=== PATIENT | female | born 1965 | race Caucasian/White ===

== ENCOUNTER 2019-08-07 23:29 | Emergency (ER) | payer OTHER ==
[~2019-08-07] VITALS: Ht 160 cm; Wt 59.0 kg
[~2019-08-07 23:29] MED LIST: AMYLIPPROE; CHLO10; CHLO10 PO; CHLO25; DOCU100 PO; FENTANYL PATCH; HYDACE7.5; HYDMOR2; HYDMOR2 PO; HYDR1TAB94 PO; IBUP800 PO; INSULANPEN SQ; METO50; OMEP20ER; ONDA8ODT MM; OXYACE5T PO; POTCHL20ER PO; PROC10 PO; PROM25 PO; PROM25S; RANI150; RXOXYACE PO; [UNRECOGNIZED DRUG - OTHER]; [UNRECOGNIZED DRUG - REMARK]
[2019-08-08 00:06] LABS: Source, Urine Clean Catch
[2019-08-08 00:08] LABS: Bilirubin, Urine Neg (Neg); Blood, Urine 1+ (Neg); Glucose Qualitative, Urine 4+ (Neg); Ketones, Urine Neg (Neg); Leukocyte Esterase, Urine 1+ (Neg); Nitrite, Urine Neg (Neg); Protein, Urine Neg (Neg); Specific Gravity, Urine 1.015 (1.003-1.022); Urobilinogen, Urine NORM (Normal)
[2019-08-08 00:10] LABS: Appearance, Urine Clear (Clear); Color, Urine Yellow (P-Yellow)
[2019-08-08 00:14] LABS: Bacteria Few /hpf; Squamous Epithelial Cells Few /hpf (Few)
[2019-08-08 00:46] LABS: BASOPHILS ABSOLUTE AUTO 0.06 K/mm3 (0.00-0.23); BASOPHILS PERCENT AUTO 0 % (0-2); EOSINOPHILS PERCENT AUTO 1 % (0-6); Hematocrit 44.2 % (33.0-51.0); Hemoglobin 15.2 g/dL (11.5-16.0); IMMATURE GRAN ABSOLUTE AUTO 0.05 K/mm3 (0.00-0.10); IMMATURE GRAN PERCENT AUTO 0 % (0-1); LYMPHOCYTES ABSOLUTE AUTO 2.22 K/mm3 (0.84-5.20); LYMPHOCYTES PERCENT AUTO 15 % (21-46); MONOCYTES PERCENT AUTO 5 % (4-13); Mean Corpuscular HGB 29.2 pg (26.0-34.0); Mean Corpuscular HGB Conc 34.4 g/dL (31.5-36.5); Mean Corpuscular Volume 85 fL (80-100); Mean Platelet Volume 10.2 fL (9.1-12.4); NEUTROPHILS ABSOLUTE AUTO 11.76 K/mm3 (1.96-9.15); NEUTROPHILS PERCENT AUTO 79 % (41-73); Platelet Count 303 K/mm3 (150-400); RDW Coefficient Variation 12.3 % (11.7-14.2); RDW Standard Deviation 37.6 fL (35.1-46.3); Red Blood Cell Count 5.21 M/mm3 (3.80-5.20); White Blood Cell Count 14.89 K/mm3 (4.00-11.30)
[2019-08-08 01:04] LABS: Alanine Aminotransfer (ALT/SGP 65 U/L (12-78); Albumin, Blood 3.7 g/dL (3.4-5.0); Albumin/Globulin Ratio 0.9 (0.8-1.8); Alk Phos 148 U/L (50-136); Anion Gap 13 mmol/L (6-16); Aspartate Aminotrans (AST/SGOT 31 U/L (12-37); Bilirubin, Total 0.4 mg/dL (0.1-1.0); Blood Urea Nitrogen 14 mg/dL (8-24); Bun/Creatinine Ratio 17.4 (12.0-20.0); CO2, Blood 18 mmol/L (21-32); Calcium, Blood 9.5 mg/dL (8.5-10.1); Chloride, Blood 105 mmol/L (98-108); Creatinine, Blood 0.81 mg/dL (0.40-1.00); Globulin, Blood 3.9 g/dL (2.2-4.0); Glomerular Filtration Rate >60 (60-); Glucose, Blood 418 mg/dL (70-99); Potassium, Blood 4.5 mmol/L (3.5-5.5); Sodium, Blood 136 mmol/L (136-145); Total Protein, Blood 7.6 g/dL (6.4-8.2)
== END 2019-08-08 03:00 | disposition short-term general hospital (02) ==
LOC: ER 23:29
PROVIDERS: Emergency Medicine
DX: N13.2 Hydronephrosis with renal and ureteral calculous obstruction (principal); F17.200 Nicotine dependence, unspecified, uncomplicated; Z91.040 Latex allergy status; Z79.899 Other long term (current) drug therapy; Z79.4 Long term (current) use of insulin
CPT/HCPCS: 36415; 74176; 80053; 81001; 83605; 85025; 87040; 87086; 96361; 96365; 96375; 99285-25; J0696; J1170; J1885; J7030

== ENCOUNTER 2019-09-23 09:50 | Day surgery (SDC) | payer OTHER ==
[~2019-09-23] VITALS: Ht 160 cm; Wt 55.8 kg
[~2019-09-23 09:50] MED LIST changes: +INSULANPEN SC; +NOVOLIN 70100 UNIT/2 SC; +OMEP20ER PO
--- NOTE | 2019-09-23 11:14 | NUR ---
09/23/19 1114 Brianna Hansen 1 IV MISS IN RW BY NETO VALVE 1 MISSED IV IN RAC BY NETO COULD NOT GET IN VEIN 1 MISSED IV IN LH BY NETO VALVE 1 MISSED IV IN LAC BY RN VALVE 1 MISSED IV IN RW BY RN WOULD NO THREAD 1 MISSED IV IN RFA BY RN WOULDNOT THREAD
== END 2019-09-23 12:22 | disposition home or self-care (01) ==
LOC: ORSCSDS 09:50
PROVIDERS: Internal Medicine Gastroenterology
PROC: 0DBK8ZX Excision of Ascending Colon, Via Natural or Artificial Opening Endoscopic, Diagnostic (ICD-10-PCS; principal; 2019-09-23 11:30)
DX: Z12.11 Encounter for screening for malignant neoplasm of colon (principal); Z86.010 Personal history of colon polyps; D12.2 Benign neoplasm of ascending colon; K64.8 Other hemorrhoids; F17.210 Nicotine dependence, cigarettes, uncomplicated; E11.9 Type 2 diabetes mellitus without complications; Z79.4 Long term (current) use of insulin; Z79.899 Other long term (current) drug therapy
CPT/HCPCS: 82947; 88305; J2704; J7120

== ENCOUNTER 2021-08-07 19:38 | Inpatient (IN) | payer OTHER ==
[~2021-08-07] VITALS: Ht 160 cm; Wt 54.4 kg
[2021-08-07] MEDS ORDERED: VICODIN HP 10-1 EAC1 PO (20:19)
[2021-08-07 20:28] LABS: Base Excess Venous -14.7 mmol/L; Bicarbonate Venous 15.2 mmol/L (24.0-30.0); PCO2 Venous 25.1 mmHg (38-42); PO2 Venous 154 mmHg (38-42); pH Blood Venous 7.29 (7.34-7.37)
[2021-08-07 20:50] LABS: BASOPHILS ABSOLUTE AUTO 0.04 K/mm3 (0.00-0.23); BASOPHILS PERCENT AUTO 1 % (0-2); EOSINOPHILS PERCENT AUTO 0 % (0-6); Hematocrit 45.2 % (33.0-51.0); Hemoglobin 15.6 g/dL (11.5-16.0); IMMATURE GRAN ABSOLUTE AUTO 0.05 K/mm3 (0.00-0.10); IMMATURE GRAN PERCENT AUTO 1 % (0-1); LYMPHOCYTES PERCENT AUTO 19 % (21-46); MONOCYTES ABSOLUTE AUTO 0.26 K/mm3 (0.16-1.47); MONOCYTES PERCENT AUTO 4 % (4-13); Mean Corpuscular HGB 29.8 pg (26.0-34.0); Mean Corpuscular HGB Conc 34.5 g/dL (31.5-36.5); Mean Corpuscular Volume 86 fL (80-100); Mean Platelet Volume 11.1 fL (9.1-12.4); NEUTROPHILS ABSOLUTE AUTO 5.55 K/mm3 (1.96-9.15); NEUTROPHILS PERCENT AUTO 76 % (41-73); Platelet Count 377 K/mm3 (150-400); RDW Coefficient Variation 11.4 % (11.7-14.2); RDW Standard Deviation 36.2 fL (35.1-46.3); Red Blood Cell Count 5.24 M/mm3 (3.80-5.20)
[2021-08-07 21:02] LABS: Albumin, Blood 3.9 g/dL (3.4-5.0); Albumin/Globulin Ratio 1.1 (0.8-1.8); Bilirubin, Total 0.5 mg/dL (0.1-1.0); Bun/Creatinine Ratio 27.4 (12.0-20.0); Calcium, Blood 9.9 mg/dL (8.5-10.1); Creatinine, Blood 1.13 mg/dL (0.40-1.00); Globulin, Blood 3.5 g/dL (2.2-4.0); Potassium, Blood 5.7 mmol/L (3.5-5.5); Total Protein, Blood 7.4 g/dL (6.4-8.2)
[2021-08-07 23:35] LABS: Glucose, Blood 694 mg/dL (70-99)
[2021-08-08 02:03] LABS: Blood Urea Nitrogen 28 mg/dL (8-24); Bun/Creatinine Ratio 32.1 (12.0-20.0); CO2, Blood 23 mmol/L (21-32); Chloride, Blood 107 mmol/L (98-108); Creatinine, Blood 0.87 mg/dL (0.40-1.00); Glomerular Filtration Rate >60 (60-); Glucose, Blood 414 mg/dL (70-99); Magnesium, Blood 1.9 mg/dL (1.6-2.4); Phosphorus, Blood 3.2 mg/dL (2.5-4.9)
[2021-08-08 02:05] LABS: Anion Gap 9 mmol/L (6-16); Calcium, Blood 7.7 mg/dL (8.5-10.1); Potassium, Blood 3.7 mmol/L (3.5-5.5); Sodium, Blood 139 mmol/L (136-145)
[2021-08-08 06:20] LABS: Source, Urine Voided
[2021-08-08 06:29] LABS: Bilirubin, Urine Neg (Neg); Blood, Urine 3+ (Neg); Glucose Qualitative, Urine 4+ (Neg); Ketones, Urine 2+ (Neg); Leukocyte Esterase, Urine Neg (Neg); Nitrite, Urine Neg (Neg); Protein, Urine 2+ (Neg); Specific Gravity, Urine 1.015 (1.003-1.022); Urobilinogen, Urine NORM (Normal)
[2021-08-08 06:47] LABS: Appearance, Urine Hazy (Clear); Bacteria Not Seen /hpf; Color, Urine Yellow (P-Yellow); Squamous Epithelial Cells Not Seen /hpf (Few); White Blood Cells, Urine Not Seen /hpf (0-5)
[2021-08-08 07:18] LABS: Anion Gap 4 mmol/L (6-16); Blood Urea Nitrogen 23 mg/dL (8-24); Bun/Creatinine Ratio 31.4 (12.0-20.0); CO2, Blood 27 mmol/L (21-32); Calcium, Blood 7.5 mg/dL (8.5-10.1); Chloride, Blood 112 mmol/L (98-108); Creatinine, Blood 0.73 mg/dL (0.40-1.00); Glomerular Filtration Rate >60 (60-); Glucose, Blood 199 mg/dL (70-99); Potassium, Blood 3.8 mmol/L (3.5-5.5); Sodium, Blood 143 mmol/L (136-145)
--- NOTE | 2021-08-08 07:30 | NUR ---
ASSUMING PT CARE: PT RESTING IN BED. AWAKES WHEN STAFF ENTERS ROOM. APPROPRIATELY INTERACTIVE. GTTs: D5 1/2NS @ 150ml/hr, INSULIN @ 2u/hr. GAP CLOSED OVER REVENUE STAMP CLERK, VS STABLE, PT STS SHE IS FEELING MUCH IMPROVED. PLAN TO CALL HOSP SHORTLY TO DISCUSS TRANSITION TO LONG ACTING. PT DENIES ANY NEEDS, DEMONSTRATES ABILITY TO MAKE NEEDS KNOWN.
--- NOTE | 2021-08-08 08:42 | NUR ---
UPDATE: HOSPITALIST LAKHWINDER YU @ BEDSIDE FOR PT EVAL. ORDERS RECEIVED TO GIVE 30 units LANTUS, TO DC GTTs IN 90mins, & PT OK'd TO EAT. TRAY ORDERED. PER AIMEE IF PT REMAINS STABLE T/O THE MORNING, SHE MAY BE ABLE TO BE DC'd HOME THIS AFTERNOON.
--- NOTE | 2021-08-08 10:30 | NUR ---
UPDATE: INSULIN & D5 1/2NS DC'd GTTs DC'D. PT MEDICATED W/ LANTUS & PROVIDED W/ SANDWICH, CHEESE, & LOW CARB JELLO. PT TOLERATING WELL, DENIES ANY NAUSEA. WILL CONTINUE TO EVALUATE & REPORT APPROPRIATE.
[2021-08-08 10:38] LABS: Anion Gap 4 mmol/L (6-16); Blood Urea Nitrogen 20 mg/dL (8-24); Bun/Creatinine Ratio 28.1 (12.0-20.0); CO2, Blood 26 mmol/L (21-32); Calcium, Blood 7.9 mg/dL (8.5-10.1); Chloride, Blood 108 mmol/L (98-108); Creatinine, Blood 0.71 mg/dL (0.40-1.00); Glomerular Filtration Rate >60 (60-); Glucose, Blood 241 mg/dL (70-99); Magnesium, Blood 1.9 mg/dL (1.6-2.4); Potassium, Blood 4.2 mmol/L (3.5-5.5); Sodium, Blood 138 mmol/L (136-145)
--- NOTE | 2021-08-08 12:50 | NUR ---
UPDATE: CBG INC LUNCH ARRIVES & CBG RESULTS "HI". PT STS SHE FEELS MILDLY NAUSEOUS BUT IS OTHERWISE WELL, VSS. AIMEE CALLED & UPDATED. ORDERS RECEIVED FOR 1L LR BOLUS, HIGH SLIDING SCALE INSULIN, & STAT BMP. LABS DRAWN & SENT. BOLUS STARTED WO. PER AIMEE, PLAN TO AWAIT LAB RESULTS BEFORE RESTARTING INSULIN GTT. AWAITING HUMALOG FROM PHARMACY.
[2021-08-08 13:43] LABS: Magnesium, Blood 1.8 mg/dL (1.6-2.4)
[2021-08-08 13:48] LABS: Anion Gap 7 mmol/L (6-16); Blood Urea Nitrogen 18 mg/dL (8-24); CO2, Blood 23 mmol/L (21-32); Calcium, Blood 7.4 mg/dL (8.5-10.1); Chloride, Blood 100 mmol/L (98-108); Creatinine, Blood 0.75 mg/dL (0.40-1.00); Glomerular Filtration Rate >60 (60-); Glucose, Blood 621 mg/dL (70-99); Phosphorus, Blood 2.3 mg/dL (2.5-4.9); Potassium, Blood 4.9 mmol/L (3.5-5.5); Sodium, Blood 130 mmol/L (136-145)
--- NOTE | 2021-08-08 14:06 | NUR ---
UPDATE: BMP RESULTS REFLEX LAB DRAW FOR CBG 621. AFTER BOLUS, CBG NOW 477. YU UPDATED ON BMP, GAP REMAINS CLOSED. ORDERS RECEIVED FOR ADDITIONAL LR BOLUS & FOLLOW W/ NS MAINTENANCE FLUIDS @ 150ml/hr. PT REPORTS SOME ABD PAIN, MEDICATED W/ PRN FENTANYL. SHE IS NOW RESTING, NADN.
--- NOTE | 2021-08-08 16:55 | NUR ---
UPDATE: AIMEE KEANE. AIMEE UPDATED ON PT's CBG TRENDS & PERSISTENT ABD PAIN & NAUSEA. VERBAL ORDERS GIVEN FOR IV PHENERGAN. INSULIN ORDERS CHANGED TO TID & 30units OF LANTUS TO BE GIVEN BID. PER AIMEE PT IS NOW MEDICAL STATUS & CAN BE TRANSFERRED WHEN THE UNIT ALLOWS. MIDWIFE AWARE.
--- NOTE | 2021-08-08 18:14 | NUR ---
SHIFT SUMMARY: PT RESTING IN BED w/ EYES CLOSED, RR EVEN & UNLABORED. VSS. PT DID HAVE SOME ABD PAIN THIS AFTERNOON, TEMPORARILY RESOLVED W/ PRN FENTANYL. HOWEVER, AFTER PHENERGAN PT IS MUCH IMPROVED AND IS ABLE TO SLEEP. CBG APPEARS TO BE STABILIZING w/ FLUIDS & HIGH SLIDING SCALE INSULIN SCHEDULED. PT IS NOW MEDICAL STATUS.
--- NOTE | 2021-08-08 20:20 | NUR ---
ASSUMED CARE, PT AWAKE, CONT TO CO INTERMITTANT MID ABD PAIN AND NAUSEA. PT STATES PHENERGAN WORKS WELL. PT MED W ZOFRAN NOT W/IN TIME PARAMETER FOR PHENERGAN. ALSO, MED W FENTANYL. PT SKIN CONT RED & CORPORATE COORDINATOR GENERAL. PT IS ON RA, VSS. IV INFUSING PER PG JOHNNY WO DIFF. DENIES URGE TO VOID. CALL LIGHT IN REACH, LIGHTS OFF & DOOR CLOSED PER PT REQUEST.
--- NOTE | 2021-08-09 00:15 | NUR ---
PT AWAKENS EASILY FOR VS, PT ASKS FOR PAIN MED AND FOR PHENERGAN, STATES SHE IS NAUSEATED. PT ASSISTED TO TOILET TO VOID, THEN MED FOR PAIN/NAUSEA.
--- NOTE | 2021-08-09 05:10 | NUR ---
PT SLOW TO AROUSE FROM SOUND SLEEP, AWAKENED FOR LABS AND VS. DENIES DISCOMFORT, COMPL OF MILD NAUSEA, MED W ZOFRAN. DENIES URGE TO VOID AND REQUESTS TO SLEEP DURING SHIFT CHANGE REPORT. CALL LIGHT IN REACH.
[2021-08-09 05:35] LABS: Anion Gap 5 mmol/L (6-16); Blood Urea Nitrogen 11 mg/dL (8-24); Bun/Creatinine Ratio 16.7 (12.0-20.0); CO2, Blood 24 mmol/L (21-32); Calcium, Blood 7.7 mg/dL (8.5-10.1); Chloride, Blood 111 mmol/L (98-108); Creatinine, Blood 0.66 mg/dL (0.40-1.00); Glomerular Filtration Rate >60 (60-); Glucose, Blood 66 mg/dL (70-99); Potassium, Blood 3.6 mmol/L (3.5-5.5)
[2021-08-09 05:38] LABS: Sodium, Blood 140 mmol/L (136-145)
--- NOTE | 2021-08-09 09:21 | NUR ---
UPDATE: HOSP LAKHWINDER. AIMEE @ BEDSIDE. UPDATED ON PT's LOW CBG THIS MORNING. PT SOMEWHAT SYMPTOMATIC, DIAPHORETIC,WARM, OTHERWISE NO COMPLAINTS. PLAN TO CHANGE TO MED SLIDING SCALE INSULIN & START PO REGLAN BEFORE MEALS TO ADDRESS PT's CHRONIC NAUSEA & ABD PAIN. IF CBG REMAINS STABLE T/O THE DAY, PT SHOULD BE ABLE TO BE DC'd HOME BY THE EVENING. PT IS AGREEABLE TO THIS PLAN.
--- NOTE | 2021-08-09 12:00 | NUR ---
PT UP TO SHOWER & BACK TO BED W/OUT INCIDENT. PT EXPRESSES HER GRATITUDE IN BEING ABLE TO SHOWER, STS SHE IS FEELING MUCH IMPROVED. SHE CONTINUES TO BE INDEPENDENT IN THE ROOM. DIETARY SPENT TIME W/ THE PT & WAS ABLE TO PROVIDE EXTENSIVE EDUCATION ON DIABETES MANAGEMENT & ENSURING SHE WILL HAVE INSULIN & TESTING SUPPLIES WHEN SHE IS DISCHARGED HOME. WILL DISCUSS PLAN FOR DC W/ AIMEE SHORTLY.
--- NOTE | 2021-08-09 14:08 | NUR ---
Discussed insulin access/administration DATA CENTER ARCHITECT with patient. Patient stated that she was rationing insulin for a couple of weeks DATA CENTER ARCHITECT with no insulin for a few days. Pt also has been unable to access glucose test strips, so she has been relying on symptoms to determine if her blood sugars are running high or low. Discussed with pt that the body typically adapts to frequently high and low blood sugars, so symptoms will not start presenting until more extreme blood glucose values are reached. Talked to patient about ensuring she has a new preferred pharamacy identified before she is discharged. Pt thinks that [facility] in [place] will be the best pharmacy for her. Pt used to get test strips through her insurance, however she reported that this is no longer an option for her and that she is now reliant on her [employer] insurance. Talked to care management about obtaining an active prescription for test strips for pt. Pt reported that she is comfortable checking blood sugars and administering isnulin, so she is confident that she can get her blood sugars back under control. Good compliance expected.
[2021-08-09] MEDS ORDERED: ONDA4ODT MM (15:21)
--- NOTE | 2021-08-09 15:45 | NUR ---
UPDATE: DISCHARGE. PT GIVEN THOROUGH DC INSTRUCTIONS & EDUCATED ON THE IMPORTANCE OF F/U W/ PCP & RETURNING IF WORSE IN ANY WAY. UNDERSTANDING VERB. POWERGLIDE DC'D. PT ESCORTED TO SOUTH ENTRANCE & OOTD.
== END 2021-08-09 16:00 | disposition home or self-care (01) | DRG 637 ==
LOC: ER 19:38 → ICUW 23:10
PROVIDERS: Emergency Medicine; Family Medicine; Internal Medicine; ADMIT Internal Medicine
DX: E11.00 Type 2 diabetes mellitus with hyperosmolarity without nonketotic hyperglycemic-hyperosmolar coma (NKHHC) (principal); J96.01 Acute respiratory failure with hypoxia; N17.9 Acute kidney failure, unspecified; R10.9 Unspecified abdominal pain; E87.5 Hyperkalemia; F12.90 Cannabis use, unspecified, uncomplicated; Z79.4 Long term (current) use of insulin; Z91.040 Latex allergy status; Z90.89 Acquired absence of other organs; Z98.51 Tubal ligation status; Z87.891 Personal history of nicotine dependence
CPT/HCPCS: 36415; 80048; 80053; 81001; 82803; 82947; 83036; 83690; 83735; 84100; 85025; 93005; 93010; 96361; 96374; 96375; 96376; 99285-25; A9270; C1751; J1650; J1815; J2270; J2405; J2550; J3010; J7030; J7042; J7120

== ENCOUNTER 2021-09-26 10:29 | Emergency (ER) | payer OTHER ==
[~2021-09-26] VITALS: Ht 160 cm; Wt 56.2 kg
[~2021-09-26 10:29] MED LIST changes: +ONDA4ODT MM; +VICODIN HP 10-1 EAC1 PO
== END 2021-09-26 11:46 | disposition home or self-care (01) ==
LOC: ER 10:29
DX: S30.0XXA Contusion of lower back and pelvis, initial encounter (principal); E11.9 Type 2 diabetes mellitus without complications; F17.210 Nicotine dependence, cigarettes, uncomplicated; Z79.4 Long term (current) use of insulin; Z91.040 Latex allergy status; W01.0XXA Fall on same level from slipping, tripping and stumbling without subsequent striking against object, initial encounter
CPT/HCPCS: 72100; 72220; 99283-25

== ENCOUNTER 2021-11-12 14:09 | Emergency (ER) | payer OTHER ==
[~2021-11-12] VITALS: Ht 160 cm; Wt 59.0 kg
[2021-11-12 14:35] LABS: Calcium, Ionized (POC) 1.03 mmol/L (1.10-1.46); Chloride (POC) 106 mmol/L (98-108); Creatinine (POC) 0.5 mg/dL (0.6-1.0); Glucose (ISTAT POC) 28 mg/dL (70-99); Potassium (POC) 4.4 mmol/L (3.5-5.5); Sodium (POC) 140 mmol/L (135-148); Total CO2 (POC) 27 mmol/L (21-32)
[2021-11-12 14:54] LABS: BASOPHILS ABSOLUTE AUTO 0.01 K/mm3 (0.00-0.23); BASOPHILS PERCENT AUTO 0 % (0-2); EOSINOPHILS PERCENT AUTO 0 % (0-6); Hematocrit 48.2 % (33.0-51.0); Hemoglobin 15.8 g/dL (11.5-16.0); IMMATURE GRAN ABSOLUTE AUTO 0.02 K/mm3 (0.00-0.10); IMMATURE GRAN PERCENT AUTO 0 % (0-1); LYMPHOCYTES PERCENT AUTO 15 % (21-46); MONOCYTES ABSOLUTE AUTO 0.34 K/mm3 (0.16-1.47); MONOCYTES PERCENT AUTO 4 % (4-13); Mean Corpuscular HGB 29.8 pg (26.0-34.0); Mean Corpuscular HGB Conc 32.8 g/dL (31.5-36.5); Mean Corpuscular Volume 91 fL (80-100); Mean Platelet Volume 10.9 fL (9.1-12.4); NEUTROPHILS ABSOLUTE AUTO 7.82 K/mm3 (1.96-9.15); NEUTROPHILS PERCENT AUTO 82 % (41-73); Platelet Count 300 K/mm3 (150-400); RDW Coefficient Variation 13.1 % (11.7-14.2); RDW Standard Deviation 43.8 fL (35.1-46.3); Red Blood Cell Count 5.31 M/mm3 (3.80-5.20); White Blood Cell Count 9.59 K/mm3 (4.00-11.30)
[2021-11-12] MEDS ORDERED: NEURONTIN300 MG PO (15:04)
[2021-11-12 15:22] LABS: Alanine Aminotransfer (ALT/SGP 27 U/L (12-78); Albumin, Blood 4.3 g/dL (3.4-5.0); Alk Phos 114 U/L (50-136); Anion Gap 8 mmol/L (6-16); Aspartate Aminotrans (AST/SGOT 43 U/L (12-37); Bilirubin, Total 0.5 mg/dL (0.1-1.0); Blood Urea Nitrogen 20 mg/dL (8-24); Bun/Creatinine Ratio 40.1 (12.0-20.0); CO2, Blood 24 mmol/L (21-32); Chloride, Blood 106 mmol/L (98-108); Globulin, Blood 4.3 g/dL (2.2-4.0); Glomerular Filtration Rate >60 (60-); Glucose, Blood 26 mg/dL (70-99); Potassium, Blood 4.5 mmol/L (3.5-5.5); Sodium, Blood 138 mmol/L (136-145); Total Protein, Blood 8.6 g/dL (6.4-8.2)
[2021-11-12 15:26] LABS: Creatine Kinase MB 7.3 ng/mL (0.0-3.6); Creatine Kinase MB Index 1.8 (0.0-4.0)
[2021-11-12 15:40] LABS: International Normalized Ratio 0.98; Prothrombin Time Results 10.3 Sec (9.7-11.5)
== END 2021-11-12 17:41 | disposition home or self-care (01) ==
LOC: ER 14:09
PROVIDERS: Emergency Medicine
DX: E11.649 Type 2 diabetes mellitus with hypoglycemia without coma (principal); F17.210 Nicotine dependence, cigarettes, uncomplicated; Z91.040 Latex allergy status; Z79.4 Long term (current) use of insulin; Z79.899 Other long term (current) drug therapy
CPT/HCPCS: 36415; 71045; 80047; 80053; 82550; 82553; 83605; 84484; 85014; 85025; 85610; 93005; 93010; 99284-25; J2405; J7030

== ENCOUNTER 2024-01-29 08:42 | Observation (INO) | payer OTHER ==
[~2024-01-29] VITALS: Ht 160 cm; Wt 49.0 kg
[~2024-01-29 08:42] MED LIST changes: +BUPROPION HCL200 M1 PO; +INSULIN AS100 UNIT/9 SQ; +INSULIN GL100 UNIT/2 SQ; +NEURONTIN300 MG PO
[2024-01-29] MEDS ORDERED: Proparacaine 0.5% Opth Soln 15 ML BTL BOTHEYES ONE ×2 (10:30→14:10)
[2024-01-29] MEDS ORDERED: Ondansetron HCl 2 MG / ML 2ML Vial IV ONE (10:40)
[2024-01-29 12:10] LABS: BASOPHILS ABSOLUTE AUTO 0.03 K/mm3 (0.00-0.23); BASOPHILS PERCENT AUTO 0 % (0-2); EOSINOPHILS ABSOLUTE AUTO 0.02 K/mm3 (0.00-0.68); EOSINOPHILS PERCENT AUTO 0 % (0-6); Hematocrit 45.5 % (33.0-51.0); Hemoglobin 15.3 g/dL (11.5-16.0); IMMATURE GRAN ABSOLUTE AUTO 0.02 K/mm3 (0.00-0.10); IMMATURE GRAN PERCENT AUTO 0 % (0-1); LYMPHOCYTES ABSOLUTE AUTO 2.09 K/mm3 (0.84-5.20); LYMPHOCYTES PERCENT AUTO 21 % (21-46); MONOCYTES ABSOLUTE AUTO 0.44 K/mm3 (0.16-1.47); MONOCYTES PERCENT AUTO 4 % (4-13); Mean Corpuscular HGB 30.5 pg (26.0-34.0); Mean Corpuscular HGB Conc 33.6 g/dL (31.5-36.5); Mean Corpuscular Volume 91 fL (80-100); Mean Platelet Volume 9.5 fL (9.1-12.4); NEUTROPHILS PERCENT AUTO 74 % (41-73); Platelet Count 397 K/mm3 (150-400); Red Blood Cell Count 5.02 M/mm3 (3.80-5.20)
[2024-01-29 12:26] LABS: International Normalized Ratio 0.91; Prothrombin Time Results 9.8 Sec (9.7-11.5)
[2024-01-29 12:42] LABS: Albumin, Blood 3.3 g/dL (3.4-5.0); Albumin/Globulin Ratio 0.8 (0.8-1.8); Bilirubin, Total 0.2 mg/dL (0.1-1.0); Bun/Creatinine Ratio 28.4 (12.0-20.0); Calcium, Blood 8.2 mg/dL (8.5-10.1); Creatinine, Blood 0.63 mg/dL (0.40-1.00); Globulin, Blood 3.9 g/dL (2.2-4.0); Potassium, Blood 4.7 mmol/L (3.5-5.5); Total Protein, Blood 7.2 g/dL (6.4-8.2)
[2024-01-29] MEDS ORDERED: Dextrose 50% 50 ML Syringe ONE (12:42)
[2024-01-29] MEDS ORDERED: LORazepam 2 MG/ML 1ML Injection IV ONE (12:50)
[2024-01-29] MEDS ORDERED: Dextrose 50% 50 ML Syringe IV ONE ×2 (12:55→13:20)
[2024-01-29] MEDS ORDERED: Dextrose 10% 500 ML IV SCH (13:40)
[2024-01-29] MEDS ORDERED: Ondansetron 4 MG TAB PO PRN (14:35)
[2024-01-29] MEDS ORDERED: Acetaminophen 325 MG TABLET PO PRN (14:40)
[2024-01-29] MEDS ORDERED: Nicoderm Cq1 EAC1 TOP (15:52)
[2024-01-29] MEDS ORDERED: BASAGLAR K100 UNIT/1 SC (15:52)
[2024-01-29 18:15] VITALS: BP 154/81
--- NOTE | 2024-01-29 18:45 | NUR ---
ER ADMIT Patient admitted for hypoglycemia, Dextrose infusing in ER. CBG this AM was 33, now CBG 380s. Lantus at HS ordered. Patient reporting right eye pain, neuro checks WNL. Right arm notably increased swelling/tightness compared to left arm. Patient c/o numbness and tingling in RUE. VSS.
--- NOTE | 2024-01-29 19:11 | NUR ---
Provider Notification Called MANAGER PROCUREMENT and reported concerns of RUE swelling, skin is tight & swollen, pt c/o numbness and tingling. Provider gave verbal orders to order venous duplex RUE r/o DVT. Instructed to hold D10 IVF, check CBG now and recheck CBG Q4H. Hold Lantus at HS. CBG is 344, will recheck in 4 hours, or PRN.
[2024-01-29 19:13] VITALS: BP 150/77
[2024-01-29] MEDS ORDERED: buPROPion HCL 150 MG TAB.SR.12H PO SCH (21:00)
[2024-01-29] MEDS ORDERED: Gabapentin 300 MG Cap PO SCH (21:00)
[2024-01-29] MEDS ORDERED: Insulin Glargine-Yfgn 100 Unit/mL 3 ML SYR SC SCH ×2 (21:00)
[2024-01-30] MEDS ORDERED: Insulin Glargine-Yfgn 100 Unit/mL 3 ML SYR SC SCH
--- NOTE | 2024-01-30 00:17 | NUR ---
DR HERNANDEZ CALLED AND REPORTS TO GIVE GLARGINE 15 UNITS. NOTED GLARGINE 20 UNITS HELD BY HOSPITALIST WENDIE ESCOBEDO. Q4 CHECK CBG 228, WAS 344. TM.
[2024-01-30 03:57] VITALS: BP 135/68
--- NOTE | 2024-01-30 04:20 | NUR ---
SHIFT SUMMARY PATIENT AXOX 4 AND SBA TO BR. PIV INTACT. CBG Q4 CHECKS 344, 228, AND LAST 68 WITH SOME JUICE AND FOOD PROVIDED. DENIES CHEST PAIN, SOB, AND N/V. VSS/AFEBRILE. RIGHT ARM SWOLLEN AT SHIFT CHANGE PER DAY RN. VENOUS DUPLEX TO RIGHT ARM NEGATIVE PER IMAGING. PATIENT REPORTED IV INFILTRATED RIGHT ARM IN ED. SLEPT MOST OF THE SHIFT. CALL LIGHT IN REACH. BED IN LOWEST POSITION. WILL CONTINUE TO MONITOR UNTIL DAY SHIFT NURSE ASSUMES CARE.
[2024-01-30] MEDS ORDERED: Omeprazole 20 MG CapCR PO SCH (06:00)
[2024-01-30 06:20] LABS: BASOPHILS ABSOLUTE AUTO 0.03 K/mm3 (0.00-0.23); BASOPHILS PERCENT AUTO 0 % (0-2); EOSINOPHILS ABSOLUTE AUTO 0.11 K/mm3 (0.00-0.68); EOSINOPHILS PERCENT AUTO 2 % (0-6); Hemoglobin 14.8 g/dL (11.5-16.0); IMMATURE GRAN ABSOLUTE AUTO 0.01 K/mm3 (0.00-0.10); IMMATURE GRAN PERCENT AUTO 0 % (0-1); LYMPHOCYTES PERCENT AUTO 39 % (21-46); MONOCYTES ABSOLUTE AUTO 0.49 K/mm3 (0.16-1.47); MONOCYTES PERCENT AUTO 7 % (4-13); Mean Corpuscular HGB 30.4 pg (26.0-34.0); Mean Corpuscular HGB Conc 33.6 g/dL (31.5-36.5); Mean Corpuscular Volume 90 fL (80-100); Mean Platelet Volume 10.2 fL (9.1-12.4); NEUTROPHILS ABSOLUTE AUTO 3.52 K/mm3 (1.96-9.15); NEUTROPHILS PERCENT AUTO 52 % (41-73); Platelet Count 314 K/mm3 (150-400); RDW Coefficient Variation 13.7 % (11.7-14.2); RDW Standard Deviation 45.6 fL (35.1-46.3); Red Blood Cell Count 4.87 M/mm3 (3.80-5.20); White Blood Cell Count 6.76 K/mm3 (4.00-11.30)
[2024-01-30 06:53] LABS: Albumin, Blood 2.6 g/dL (3.4-5.0); Albumin/Globulin Ratio 0.7 (0.8-1.8); Bilirubin, Total 0.3 mg/dL (0.1-1.0); Bun/Creatinine Ratio 20.5 (12.0-20.0); Calcium, Blood 8.2 mg/dL (8.5-10.1); Creatinine, Blood 0.63 mg/dL (0.40-1.00); Globulin, Blood 3.5 g/dL (2.2-4.0); Potassium, Blood 4.7 mmol/L (3.5-5.5); Total Protein, Blood 6.1 g/dL (6.4-8.2)
[2024-01-30 07:27] VITALS: BP 141/92
--- NOTE | 2024-01-30 08:31 | NUR ---
CALLED DR ASH- PT HAD A BG AT 0400 THAT WAS 68. PT PROVIDED WITH JUICE AND PER D10 WAS RESTARTED. AT 0800 BG WAS UP TO 130. CALLED DR ASH AND RECIEVED AN ORDER TO STOP THE D10 INFUSION AT THIS TIME, FOR NOW. ORDER NOT DC'D, PLACED ON HOLD. IV SL AT THIS TIME.
[2024-01-30] MEDS ORDERED: Enoxaparin 40 MG/0.4 ML SYR SC SCH (09:00)
[2024-01-30] MEDS ORDERED: Nicotine 14 MG PATCH TOP SCH (09:00)
[2024-01-30 10:36] VITALS: BP 168/87
--- NOTE | 2024-01-30 10:56 | NUR ---
PT C/O NUMBNESS NOT PRESENT PRIOR- CALLED DR ASH AND LEFT A MESSAGE, CALLED A SECOND TIME TO CONFIRM THE CORRECT NUMBER WAS DIALED. AGAIN GOT VOICEMAIL. PT NOT IN A STATE OF DISTRESS, MOTOR FUNCTION APPEARS INTACT, FISHER MUSSEL STRENGTH EQUAL, HOWEVER THE PT STATES THE RIGHT SIDE OF HER HEAD HER RIGHT ARM AND HER RIGHT FOOT ARE ALL NUMB. CALLED DR FRANCIS, A RAPID RESPONSE IS NOT INDICATED BUT THE PT REQUIRES AN EVAL FROM THE DOCTOR. PT STATES THIS NUMBNESS IS NEW. PERIPHERAL PULSES IN TACT, PT HAS GROSS MOTOR MOVEMENT IN TACT. SHE STATES TINGLING NOW ON THE WHILE SIDE AND COMPLETE NUMBNESS ON THE RIGHT EAR AND SIDE OF HEAD. DR FRANCIS RESPONDED AND CAME TO THE BEDSIDE, PERFORMED A NEURO EXAM. PUPILARY RESPONSE APPEARED TO BE UNRESPONSIVE TO THIS RNMD EVALUATED PUPIL RESPONSE SLUGGISH. HE WILL SPEAK TO DR ASH.
[2024-01-30] MEDS ORDERED: ALBU90OI INH (12:51)
[2024-01-30] MEDS ORDERED: Budeprion Xl300 MG PO (12:52)
[2024-01-30] MEDS ORDERED: BUPR150ER PO (12:52)
--- NOTE | 2024-01-30 15:51 | NUR ---
SHIFT SUMMARY PT CONT WITH LOC. PT NOTED TO C/O NUMBNESS THIS SHIFT TO RIGHT SIDE. PHYSICIAN NOTIFED WITH NO NEW ORDERS AT THIS TIME. RECEIVED ORDER TO HOLD D10 D/T BLOOD SUGAR BEING STABLE PER DR. HERNANDEZ.
[2024-01-30 19:47] VITALS: BP 163/72
[2024-01-31 02:55] VITALS: BP 132/69
--- NOTE | 2024-01-31 04:06 | NUR ---
SHIFT SUMMARY PATIENT HAD NO ACUTE CHANGES. AXOX 4 AND SBA TO BR. CBG 290 & 196. PIV INTACT. DENIES CHEST PAIN, SOB, AND N/V. VSS/AFEBRILE. SLEPT MOST OF SHIFT. COOPERATIVE WITH CARE. CALL LIGHT IN REACH. BED IN LOWEST POSITION. WILL CONTINUE TO MONITOR UNTIL DAY SHIFT NURSE ASSUME CARE.
[2024-01-31 07:16] VITALS: BP 155/78
[2024-01-31] MEDS ORDERED: Insulin Human Lispro 100 Units/ML 3ML Syringe SC SCH (11:30)
[2024-01-31 11:47] LABS: BASOPHILS ABSOLUTE AUTO 0.03 K/mm3 (0.00-0.23); BASOPHILS PERCENT AUTO 0 % (0-2); EOSINOPHILS ABSOLUTE AUTO 0.11 K/mm3 (0.00-0.68); EOSINOPHILS PERCENT AUTO 2 % (0-6); Hematocrit 44.9 % (33.0-51.0); IMMATURE GRAN ABSOLUTE AUTO 0.01 K/mm3 (0.00-0.10); IMMATURE GRAN PERCENT AUTO 0 % (0-1); LYMPHOCYTES ABSOLUTE AUTO 2.91 K/mm3 (0.84-5.20); LYMPHOCYTES PERCENT AUTO 39 % (21-46); MONOCYTES ABSOLUTE AUTO 0.52 K/mm3 (0.16-1.47); MONOCYTES PERCENT AUTO 7 % (4-13); Mean Corpuscular HGB 30.5 pg (26.0-34.0); Mean Corpuscular HGB Conc 33.4 g/dL (31.5-36.5); Mean Corpuscular Volume 91 fL (80-100); Mean Platelet Volume 9.9 fL (9.1-12.4); NEUTROPHILS ABSOLUTE AUTO 3.84 K/mm3 (1.96-9.15); NEUTROPHILS PERCENT AUTO 52 % (41-73); Platelet Count 295 K/mm3 (150-400); RDW Coefficient Variation 13.7 % (11.7-14.2); RDW Standard Deviation 46.2 fL (35.1-46.3); Red Blood Cell Count 4.91 M/mm3 (3.80-5.20); White Blood Cell Count 7.42 K/mm3 (4.00-11.30)
[2024-01-31 11:51] LABS: Albumin, Blood 2.8 g/dL (3.4-5.0); Albumin/Globulin Ratio 0.8 (0.8-1.8); Bilirubin, Total 0.3 mg/dL (0.1-1.0); Bun/Creatinine Ratio 22.7 (12.0-20.0); Calcium, Blood 8.4 mg/dL (8.5-10.1); Creatinine, Blood 0.71 mg/dL (0.40-1.00); Globulin, Blood 3.3 g/dL (2.2-4.0); Potassium, Blood 5.3 mmol/L (3.5-5.5); Total Protein, Blood 6.1 g/dL (6.4-8.2)
[2024-01-31 15:19] VITALS: BP 144/94
--- NOTE | 2024-01-31 15:49 | NUR ---
THIS RN PROVIDING BREAK COVERAGE FOR PRIMARY RN. ATTEMPT TO FIND VEIN FOR IV PLACEMENT; UNABLE TO FIND VEIN AND PT REPORTS VEINS ARE TYPICALLY VERY FRAGILE AND DIFFICULT TO FIND. PRIMARY RN NOTIFIED; MAY NEED TO REQUEST CHARGE ASSIST.
--- NOTE | 2024-01-31 17:49 | NUR ---
SHIFT SUMMARY: PT A&O X4. PLEASANT AND COOPERATIVE WITH CARE. PT STILL C/O NUMBNESS ON R. SIDE OF HEAD/FACE AND DOWN R. ARM. DISCUSSED WITH DR. MOSES WHO ORDERED MRI. MRI SCREENING FORM FAXED AROUND 1720. DEXTROSE HELD TWICE THIS SHIFT PER . PT BLOOD SUGARS STABLE. CALL LIGHT IN REACH. BED IN LOWEST POSITION.
[2024-01-31 20:13] VITALS: BP 172/74
[2024-01-31 22:00] VITALS: BP 162/91
--- NOTE | 2024-02-01 03:30 | NUR ---
NO NEW CONCERNS FROM PT. STATES STILL HAVING RIGHT SIDE OF FACE NUMBNESS/DECREASED HEARING IN RIGHT EAR. MRI ORDERED FOR . BLOOD SUGARS HAVE BEEN STABLE, DR. GARCIA NOTIFIED AND DC'D DEXTROSE INFUSION THAT HAS BEEN CONTINUOULSY HELD DURING DAY SHIFT AND DC'D Q4 HOUR BLOOD SUGAR CHECKS. NOW ACHS. PT ALERT AND ON DIET, TOLERATING INTAKE. CALLS APPROPRIATELY. INDEPENDENT IN ROOM.
[2024-02-01 03:53] VITALS: BP 132/72
[2024-02-01 05:42] LABS: BASOPHILS ABSOLUTE AUTO 0.03 K/mm3 (0.00-0.23); BASOPHILS PERCENT AUTO 0 % (0-2); EOSINOPHILS ABSOLUTE AUTO 0.14 K/mm3 (0.00-0.68); EOSINOPHILS PERCENT AUTO 2 % (0-6); Hematocrit 42.7 % (33.0-51.0); Hemoglobin 14.5 g/dL (11.5-16.0); IMMATURE GRAN ABSOLUTE AUTO 0.01 K/mm3 (0.00-0.10); IMMATURE GRAN PERCENT AUTO 0 % (0-1); LYMPHOCYTES ABSOLUTE AUTO 3.03 K/mm3 (0.84-5.20); LYMPHOCYTES PERCENT AUTO 43 % (21-46); MONOCYTES PERCENT AUTO 9 % (4-13); Mean Corpuscular HGB 30.7 pg (26.0-34.0); Mean Corpuscular Volume 91 fL (80-100); Mean Platelet Volume 9.8 fL (9.1-12.4); NEUTROPHILS ABSOLUTE AUTO 3.25 K/mm3 (1.96-9.15); NEUTROPHILS PERCENT AUTO 46 % (41-73); Platelet Count 278 K/mm3 (150-400); RDW Coefficient Variation 13.7 % (11.7-14.2); RDW Standard Deviation 45.8 fL (35.1-46.3); Red Blood Cell Count 4.72 M/mm3 (3.80-5.20); White Blood Cell Count 7.06 K/mm3 (4.00-11.30)
[2024-02-01 06:11] LABS: Bun/Creatinine Ratio 27.5 (12.0-20.0); Calcium, Blood 8.6 mg/dL (8.5-10.1); Creatinine, Blood 0.87 mg/dL (0.40-1.00); Potassium, Blood 4.7 mmol/L (3.5-5.5)
--- NOTE | 2024-02-01 06:21 | NUR ---
NOTICED GLUCOSE LEVEL FROM BLOOD WORK WAS 52 THIS AM, BROUGHT PT 2 CUPS OF ORANGE JUICES AND 1 PACK OF ANA CRACKERS AND INSTRUCTED PT TO CONSUME ALL. WILL RECHECK SHORTLY
[2024-02-01 06:55] VITALS: BP 96/73
[2024-02-01 10:38] LABS: Free Thyroxine 0.94 ng/dL (0.70-1.60); Triiodothyronine, Free 2.72 pg/mL (2.18-3.98)
[2024-02-01] MEDS ORDERED: Dextrose 5% 250 ML IV ONE (15:25)
[2024-02-01] MEDS ORDERED: D5W-1/2NS 1,000 ML IV SCH (15:40)
[2024-02-01] MEDS ORDERED: D5W-1/2NS 1,000 ML IV ONE (15:41)
--- NOTE | 2024-02-01 18:17 | NUR ---
PATIENT BG RUNNING LOW MOST OF THE DAY ONLY RECEVIED 4U OF INSULIN POST SANDWHICH PRIOR TO LUNCH THEN AFTER LUNCH BG DOWN TO 60 AND SYMPTOMATIC. NOTIFIED AND D5 1/2 NS IVF ORDERED @ 125ML/HR CONTINUOUS INFUSION. BG UP TO 74 AFTERWARDS. ATTMEPTS MADE TO EDUCATE PATEINT ON SNACKS THAT HAVE A COMPLEX CARB AND PROTEIN IN THEM HOWEVER PATIENT DID NOT TO TRY THESE KINDS OF SNACKS. SHE WOULD ONLY TAKE A FEW SIPS OF OJ DURING HYPOGLYEMIC EPISODES WHICH WAS NOT ENOUGH TO SUSTAIN HER FURTHER EDUCATION NEEDED AND FREQUENT BG CHECKS ALSO RECCOMMENDED. ALL OTHER VSS.
[2024-02-01 19:08] VITALS: BP 159/81
[2024-02-01] MEDS ORDERED: Prochlorperazine Edisylate 10 mg Vial IV PRN (19:55)
[2024-02-01] MEDS ORDERED: Cyclobenzaprine HCl 10 MG Tab PO ONE (20:10)
[2024-02-01] MEDS ORDERED: Insulin Glargine-Yfgn 100 Unit/mL 3 ML SYR SC SCH (21:00)
--- NOTE | 2024-02-01 22:36 | NUR ---
DR. ESPINAL CALLED TO NOTIFY OF PT'S UNRESOLVED LLQ ABDOMINLAL PAIN AND NAUSEA WITH CURRENT REGIMEN OF TYLNEOL AND PO ZOFRAN. DR. ESPINAL CAME UP TO SEE PT AND ORDERED IV COMPAZINE AND ONE TIME ORDER OF FLEXERIL FOR PT'S "PULLING TYPE OF PAIN. PT IS CURRENTLY RESTINGIN BED, APPEARS TO BE ASLEEP.
[2024-02-02 04:55] LABS: BASOPHILS ABSOLUTE AUTO 0.02 K/mm3 (0.00-0.23); BASOPHILS PERCENT AUTO 0 % (0-2); EOSINOPHILS ABSOLUTE AUTO 0.11 K/mm3 (0.00-0.68); EOSINOPHILS PERCENT AUTO 2 % (0-6); Hematocrit 38.2 % (33.0-51.0); Hemoglobin 12.8 g/dL (11.5-16.0); IMMATURE GRAN ABSOLUTE AUTO 0.02 K/mm3 (0.00-0.10); IMMATURE GRAN PERCENT AUTO 0 % (0-1); LYMPHOCYTES ABSOLUTE AUTO 2.25 K/mm3 (0.84-5.20); LYMPHOCYTES PERCENT AUTO 37 % (21-46); MONOCYTES ABSOLUTE AUTO 0.47 K/mm3 (0.16-1.47); MONOCYTES PERCENT AUTO 8 % (4-13); Mean Corpuscular HGB 30.3 pg (26.0-34.0); Mean Corpuscular HGB Conc 33.5 g/dL (31.5-36.5); Mean Corpuscular Volume 91 fL (80-100); Mean Platelet Volume 9.6 fL (9.1-12.4); NEUTROPHILS PERCENT AUTO 53 % (41-73); Platelet Count 252 K/mm3 (150-400); RDW Coefficient Variation 13.5 % (11.7-14.2); RDW Standard Deviation 45.1 fL (35.1-46.3); Red Blood Cell Count 4.22 M/mm3 (3.80-5.20); White Blood Cell Count 6.07 K/mm3 (4.00-11.30)
[2024-02-02 05:06] VITALS: BP 143/71
[2024-02-02 05:36] LABS: Bun/Creatinine Ratio 31.6 (12.0-20.0); Calcium, Blood 8.3 mg/dL (8.5-10.1); Creatinine, Blood 0.73 mg/dL (0.40-1.00); Potassium, Blood 4.6 mmol/L (3.5-5.5)
[2024-02-02 07:29] VITALS: BP 153/76
[2024-02-02] MEDS ORDERED: HUMALOG KW100 UNIT/1 SC (12:43)
--- NOTE | 2024-02-02 13:07 | NUR ---
DC-1305 PT LEFT FOR DC IN STABLE CONDITION WITH ALL BELONGINGS. PT WAS PICKED UP BY HER MOTHER. DC INSTRUCTIONS WERE DISCUSSED IN DETAIL.
== END 2024-02-02 13:13 | disposition home or self-care (01) ==
LOC: ER 08:42 → MEDS 14:31
PROVIDERS: Emergency Medicine; Family Medicine; ADMIT Internal Medicine
DX: E10.649 Type 1 diabetes mellitus with hypoglycemia without coma (principal); E10.42 Type 1 diabetes mellitus with diabetic polyneuropathy; K21.9 Gastro-esophageal reflux disease without esophagitis; E55.9 Vitamin D deficiency, unspecified; F41.8 Other specified anxiety disorders; Z79.4 Long term (current) use of insulin; Z79.899 Other long term (current) drug therapy
CPT/HCPCS: 36415; 70450; 70551; 80048; 80053; 82533; 82947; 84439; 84443; 84481; 85025; 85610; 85651; 93971; 96372; 96374; 96375; 96376; 99285-25; A9270; A9270-GY; G0378; J0780; J1650; J1815; J2060; J7042; J7060

== ENCOUNTER → 2025-07-15 | Outpatient (CLI) | payer OTHER ==
[~2025-07-15] MED LIST changes: +ALBU90OI INH; +BASAGLAR K100 UNIT/1 SC; +BUPR150ER PO; +Budeprion Xl300 MG PO; +HUMALOG KW100 UNIT/1 SC; +Nicoderm Cq1 EAC1 TOP
== END ==
LOC: LAB 07:00 → LAB SHORT 07:00
PROVIDERS: Internal Medicine Endocrinology, Diabetes & Metabolism
DX: E10.29 Type 1 diabetes mellitus with other diabetic kidney complication (principal); R80.8 Other proteinuria
CPT/HCPCS: 81050; 82043; 82570